=== PATIENT | female | born 1965 | race Caucasian/White ===

== ENCOUNTER → 2022-06-20 | Outpatient (REF) | payer BC | LOC: M SFHCDERM 17:42 | PROVIDERS: ATTEND Nurse Practitioner Family | DX: L30.9 Dermatitis, unspecified (principal); L57.0 Actinic keratosis ==

== ENCOUNTER → 2023-05-14 | Outpatient (REF) | payer BC | LOC: M SFHCDERM 10:29 | PROVIDERS: ATTEND Nurse Practitioner Family | DX: Z53.9 Procedure and treatment not carried out, unspecified reason (principal) ==

== ENCOUNTER → 2023-12-10 | Outpatient (REF) | payer BC | LOC: M SFHCPLAZ 14:42 | PROVIDERS: ATTEND Nurse Practitioner Family | DX: L93.0 Discoid lupus erythematosus (principal) ==

== ENCOUNTER 2024-03-12 10:21 | Day surgery (SDC) | payer BC ==
[~2024-03-12] VITALS: Ht 162.6 cm; Wt 69.4 kg
[~2024-03-12 10:21] MED LIST: BUSP5TA PO; HYDR200T46 PO; PRED10TA2 PO
[2024-03-12] MEDS ORDERED: propofoL 500 MG/50 ML VIAL As Ordered ONE (11:10)
[2024-03-12 11:20] VITALS: TEMP 98
[2024-03-12 11:35] VITALS: BP 118/59; O2SAT 96
== END 2024-03-12 11:48 | disposition home or self-care (01) ==
LOC: M OPP 10:21
PROVIDERS: ATTEND Surgery
DX: Z12.11 Encounter for screening for malignant neoplasm of colon (principal); Z86.010 Personal history of colon polyps; K64.0 First degree hemorrhoids; F17.200 Nicotine dependence, unspecified, uncomplicated; Z79.52 Long term (current) use of systemic steroids; Z79.899 Other long term (current) drug therapy